=== PATIENT | male | born 1985 | race Caucasian/White ===

== ENCOUNTER 2017-02-28 20:46 | Emergency (ER) | payer OTHER ==
[~2017-02-28 20:46] MED LIST: CLARITIN10 MG PO; FLUTICASONE PRO16 GM; KEFLEX500 MG PO; MONTELUKAST SOD10 MG PO; NICODERM 14MG PA1 EA TD; PERCOCET 5-3251 EACH PO; SULFAMETHOXAZOLE1 EA PO
[2017-02-28 22:43] LABS: BASO % 0.1 % (0.2-1.2); EOS % 0.1 % (0.8-7.0); GRAN # 12.7 10_X3_uL (1.8-5.4); GRAN % 88.4 % (34.0-67.9); HEMATOCRIT 42.9 % (40-51); HEMOGLOBIN 15.3 g/dL (13.7-17.5); LYMPH # 0.8 10_X3_uL (1.3-3.6); LYMPH % 5.4 % (21.8-53.1); MEAN CORPUSCULAR HEMOGLOBIN 31.6 pg (27.0-33.0); MEAN CORPUSCULAR HGB CONC 35.7 g/dL (32.0-36.0); MEAN CORPUSCULAR VOLUME 88.6 fL (79-92); MEAN PLATELET VOLUME 8.5 fl (7.5-11.5); MONO # 0.9 10_X3_uL (0.3-0.8); PLATELET COUNT 333 x10_3/uL (163-337); RED BLOOD COUNT 4.84 x10_6/uL (4.6-6.1); RED CELL DISTRIBUTION WIDTH 12.5 % (11.6-14.4); WHITE BLOOD COUNT 14.4 x10_3/uL (4.2-9.1)
[2017-02-28 22:44] LABS: URINE BILIRUBIN NEGATIVE (NEGATIVE); URINE BLOOD NEGATIVE (NEGATIVE); URINE GLUCOSE (UA) 100 mg/dL (NORMAL); URINE KETONE NEGATIVE (NEGATIVE); URINE LEUKOCYTE ESTERASE NEGATIVE (NEGATIVE); URINE NITRATE NEGATIVE (NEGATIVE); URINE PROTEIN 1+ (NEGATIVE)
[2017-02-28 22:53] LABS: ALBUMIN 4.6 gm/dL (3.4-5.0); ALKALINE PHOSPHATASE 99 U/L (50-136); ALT/SGPT 145 U/L (7.53-40.17); AST/SGOT 85 U/L (6.66-35.34); BILIRUBIN,TOTAL 0.62 mg/dL (0.0-1.0); CALCIUM 8.8 mg/dL (8.7-10.7); CARBON DIOXIDE 24 mmol/L (21-32); CREATININE 0.8 mg/dL (0.6-1.3); GLUCOSE,RANDOM 113 mg/dL (70-99); POTASSIUM 3.5 mmol/L (3.5-5.1); SODIUM 135 mmol/L (136-145); TOTAL PROTEIN 8.2 gm/dL (6.4-8.2)
[2017-02-28 22:54] LABS: ACETAMINOPHEN < 15.0 ug/ml (10.0-30.0); BLOOD UREA NITROGEN 41 mg/dL (7-18); ETHYL ALCOHOL < 10 mg/dl
== END 2017-02-28 23:38 | disposition home or self-care (01) ==
LOC: ER 20:46
PROVIDERS: Emergency Medicine
DX: T40.1X1A Poisoning by heroin, accidental (unintentional), initial encounter (principal); R11.10 Vomiting, unspecified; Y92.002 Bathroom of unspecified non-institutional (private) residence as the place of occurrence of the external cause; F17.210 Nicotine dependence, cigarettes, uncomplicated
CPT/HCPCS: 36415; 71010; 80053; 80307; 81003; 85025; 96361; 96374; 99284-25; G0480